=== PATIENT | male | born 1975 | race Caucasian/White ===

== ENCOUNTER 2019-01-05 07:44 | Emergency (ER) | payer OTHER ==
[~2019-01-05] VITALS: Ht 167.6 cm; Wt 73.0 kg
--- NOTE | 2019-01-05 08:03 | NUR ---
Pt presents to ED with c/o headache, nausea, vomiting, and "microscopic blood in my urine." Pt states he was seen at urgent care yesterday and that is when the hematuria was discovered. Pt states, "I drink about 3-4 beers a day." Pt denies cp, sob, trauma, current diarrhea. CMS intact. NADN. Pt has unlabored respirations with even chest rise and fall. Bedside rail up for safety measure. Call light within reach. Pt states, "I was in [place] on the 15 of December".
[2019-01-05 08:34] LABS: BASOPHILS # (AUTO) 0.01 x10^3/uL (0-0.1); BASOPHILS % (AUTO) 0 % (0-1); EOSINOPHILS # (AUTO) 0.03 x10^3/uL (0-0.4); EOSINOPHILS % (AUTO) 0 % (1-7); LYMPHOCYTES # (AUTO) 0.81 x10^3/uL (1-3.4); LYMPHOCYTES % (AUTO) 9 % (22-44); MD NO; MEAN CORPUSCULAR HEMOGLOBIN 33.8 pg (27.5-34.5); MEAN CORPUSCULAR HGB CONC 35.3 g/dL (33.2-36.2); MEAN CORPUSCULAR VOLUME 95.8 fL (81-97); MONOCYTES # (AUTO) 0.38 x10^3/uL (0.2-0.8); MONOCYTES % (AUTO) 4 % (2-9); NEUTROPHILS # (AUTO) 7.83 x10^3/uL (1.8-6.8); NEUTROPHILS % (AUTO) 86 % (42-75); PLATELET COUNT 127 x10^3/uL (130-400); RED BLOOD COUNT 4.59 x10^6/uL (4.38-5.82); RED CELL DISTRIBUTION WIDTH 13.6 % (9.4-14.8)
[2019-01-05 08:45] LABS: ALANINE AMINOTRANSFERASE 112 U/L (12-78); ALBUMIN 3.9 g/dL (3.4-5.0); ANION GAP 10 mmol/L (5-15); CALCIUM 9.8 mg/dL (8.5-10.1); CHLORIDE 98 mmol/L (98-107); CREATININE 0.79 mg/dL (0.7-1.3)
[2019-01-05 08:48] LABS: ALKALINE PHOSPHATASE 92 U/L (45-117); BILIRUBIN,TOTAL 0.9 mg/dL (0.2-1.0); TOTAL PROTEIN 7.6 g/dL (6.4-8.2)
[2019-01-05] MEDS ORDERED: ACETAMINOPHEN 325 MG TABLET ONE (08:52)
--- NOTE | 2019-01-05 08:54 | NUR ---
Provided pt medication per [facility] for 2/ headache. Pt appreciative. NADN. Sent urine to lab for UA. No other needs expressed at this time. Pt offered nausea medication per [facility]. Pt declined zofran at this time. Call light within reach.
[2019-01-05 08:55] VITALS: BP 143/76
[2019-01-05 08:59] LABS: MICROSCOPIC AUTO
[2019-01-05] MEDS ORDERED: ONDANSETRON ODT 4 MG PO ONE (09:00)
[2019-01-05] MEDS ORDERED: ACETAMINOPHEN 325 MG TABLET PO ONE (09:00)
[2019-01-05 09:12] LABS: CULTURE INDICATED? NO
--- NOTE | 2019-01-05 10:27 | NUR ---
Patient given discharge instructions and they have confirmed that they understand the instructions. Patient ambulatory with steady gait. Pt left with d/c paperwork, prescription, and all personal belongings.
== END 2019-01-05 10:55 | disposition home or self-care (01) ==
LOC: ED 10:40
DX: K70.10 Alcoholic hepatitis without ascites (principal); F19.10 Other psychoactive substance abuse, uncomplicated; F10.10 Alcohol abuse, uncomplicated; K29.20 Alcoholic gastritis without bleeding
CPT/HCPCS: 36415; 80053; 81001; 83690; 85025; 99283